=== PATIENT | female | born 1960 | race Caucasian/White ===

== ENCOUNTER 2019-08-07 18:49 | Emergency (ER) | payer MEDICAID, OTHER ==
[~2019-08-07] VITALS: Ht 167.6 cm; Wt 78.0 kg
--- NOTE | 2019-08-07 19:00 | NUR ---
bib remsa found by rpd sitting on sidewalk near unknown business, pt a&ox2, flight of ideas, follows command and ambulatory. per emt pt has bag of antipsycotic medications with her. monitors applied, siderails up x2, call light within reach
--- NOTE | 2019-08-07 19:20 | NUR ---
PROVIDED PT WITH DRINK,FACILITY REHAB DIRECTOR AT BEDSIDE
[2019-08-07 19:40] LABS: BASOPHILS # (AUTO) 0.01 x10^3/uL (0-0.1); BASOPHILS % (AUTO) 0 % (0-1); EOSINOPHILS # (AUTO) 0.03 x10^3/uL (0-0.4); EOSINOPHILS % (AUTO) 0 % (1-7); LYMPHOCYTES # (AUTO) 0.98 x10^3/uL (1-3.4); LYMPHOCYTES % (AUTO) 9 % (22-44); MD NO; MEAN CORPUSCULAR HEMOGLOBIN 34.5 pg (27.0-34.8); MEAN CORPUSCULAR HGB CONC 32.6 g/dL (32.4-35.8); MEAN CORPUSCULAR VOLUME 105.9 fL (80-100); MEAN PLATELET VOLUME 8.8 fL (7.4-10.4); MONOCYTES # (AUTO) 0.69 x10^3/uL (0.2-0.8); MONOCYTES % (AUTO) 7 % (2-9); NEUTROPHILS # (AUTO) 8.92 x10^3/uL (1.8-6.8); NEUTROPHILS % (AUTO) 84 % (42-75); PLATELET COUNT 259 x10^3/uL (130-400); RED BLOOD COUNT 4.14 x10^6/uL (3.82-5.3); RED CELL DISTRIBUTION WIDTH 14.7 % (9.6-15.2)
[2019-08-07] MEDS ORDERED: LITH300C PO (19:40)
[2019-08-07] MEDS ORDERED: RISP0.5T3 PO (19:40)
[2019-08-07] MEDS ORDERED: LORA1TAB PO (19:42)
[2019-08-07] MEDS ORDERED: TRAZ-137 PO (19:42)
[2019-08-07] MEDS ORDERED: BUPR150T73 PO (19:44)
[2019-08-07] MEDS ORDERED: GABA600T7 PO (19:44)
[2019-08-07 19:52] LABS: ALANINE AMINOTRANSFERASE 24 U/L (12-78); ALBUMIN 4.2 g/dL (3.4-5.0); ANION GAP 8 mmol/L (5-15); CALCIUM 9.9 mg/dL (8.5-10.1); CHLORIDE 110 mmol/L (98-107); CREATININE 0.85 mg/dL (0.55-1.02); SALICYLATE LEVEL 3.1 mg/dL (2.8-20.0)
[2019-08-07 19:54] LABS: ALKALINE PHOSPHATASE 60 U/L (45-117); BILIRUBIN,TOTAL 0.9 mg/dL (0.2-1.0); TOTAL PROTEIN 7.3 g/dL (6.4-8.2)
--- NOTE | 2019-08-07 20:20 | NUR ---
pt resting calmly, monitors in place, call light within reach. pt stated "i can't pee now"
--- NOTE | 2019-08-07 20:48 | NUR ---
PT UP TO RR WITH STANDBY ASSIST
--- NOTE | 2019-08-07 20:55 | NUR ---
PT DUMPED URINE SAMPLE IN [facility]. PROVIDED PT WITH WATER PER HER REQUEST
[2019-08-07] MEDS ORDERED: QUETIAPINE 100MG TABLET PO SCH (21:00)
[2019-08-07] MEDS ORDERED: QUETIAPINE 100MG TABLET ONE (21:06)
--- NOTE | 2019-08-07 21:15 | NUR ---
PT MEDICATED PER DEC. YELLOW SLIP SENT TO PHARMACY FOR MEDICATION
[2019-08-07] MEDS: HYDROXYZINE PAMOATE 50MG CAP PO PRN (21:27)
--- NOTE | 2019-08-07 21:34 | NUR ---
PROVIDED PT WITH SANDWICH AND DRINK, PT DENIES FURTHER NEEDS AT THIS TIME, MONITORS IN PLACE, SIDERAILS UP X2, CALL LIGHT WITHIN REACH
--- NOTE | 2019-08-07 22:14 | NUR ---
PT SITTING UP ON GURNEY, PROVIDED PT WITH WARM BLANKET, MONITORS IN PLACE, SIDERAILS UP X2, CALL LIGHT WITHIN REACH
--- NOTE | 2019-08-07 22:30 | NUR ---
PT ATTEMPTING TO GET UP OOB, ASSISTED PT BACK ON GURNEY, PT RESTING CALMLY, AGGREED NOT TO GET UP BY HERSELF TO CALL FOR ASSISTANCE WHEN NEED TO GET UP. ERP UPDATED REGARDING PT STATUS. ERP AT BEDSIDE FOR RECHECK
[2019-08-07] MEDS ORDERED: HALOPERIDOL 5 MG/ML IM STA (22:38)
[2019-08-07] MEDS ORDERED: HALOPERIDOL 5 MG/ML ONE (22:40)
--- NOTE | 2019-08-07 22:52 | NUR ---
PT UP WANDERING IN ROOM,. PA AT BEDSIDE, PT MEDICATED PER MAR. SECURITY CALLED FOR ASSISTANCE GETTING PT BACK ON GURNEY, RESTRAINTS X2 APPLIED. ALL PT'S PERSONAL BELONGINGS REMOVED FROM ROOM AND LOCKED UP IN SECURITY LOCKER.
--- NOTE | 2019-08-07 23:21 | NUR ---
PT RESTING CALMLY WITH EYES CLOSED, SECURITY CALLED FOR RESTRAINT REMOVAL
--- NOTE | 2019-08-07 23:48 | NUR ---
PT RESTING ON GURNEY, PORTABLE BED ALARM IN PLACE FOR PT SAFETY, BED IN LOW POSITION, SIDERAILS UP X2, CALL LIGHT WITHIN REACH, INSTRUCTED PT TO CALL FOR ASSISTANCE TO GET OOB, PT VERBALIZED UNDERSTANDING AND AGREEMENT. WILL CONTINUE TO MONITOR
--- NOTE | 2019-08-08 | NUR ---
PA UPDATED PT RESTLESS AND REQUESTING A SHOT, PA TO SEE PT
[2019-08-08] MEDS ORDERED: HALOPERIDOL 5 MG/ML ONE (00:10)
[2019-08-08] MEDS ORDERED: HALOPERIDOL 5 MG/ML IM ONE (00:30)
--- NOTE | 2019-08-08 01:04 | NUR ---
PT UP TO RR WITH STANDBY ASSIST, URINE SAMPLE SENT
[2019-08-08 01:23] LABS: AMPHETAMINE SCREEN, URINE Negative (Negative); BARBITURATE SCREEN, URINE Negative (Negative); BENZODIAZEPINE SCREEN, URINE Positive (Negative); CANNABINOID SCREEN, URINE Negative (Negative); COCAINE SCREEN, URINE Negative (Negative); METHADONE SCREEN, URINE Negative (Negative); OPIATE SCREEN, URINE Positive (Negative)
--- NOTE | 2019-08-08 01:29 | NUR ---
PT RESTING WITH EYES CLOSES, RESPIRTATIONS EVEN AND UNLABORED, SIDERAILS UP X2, SITTER AT DOORWAY FOR CONTINOUS MONITORING
--- NOTE | 2019-08-08 02:36 | NUR ---
PT UP TO RR WITH STANDBY ASSIST, SITTER REMAINS AT PT'S SIDE
--- NOTE | 2019-08-08 03:30 | NUR ---
PT RESTING WITH EYES CLOSED, NAD, EQUAL CHEST RISE/FALL OBSERVED, SITTER AT DOORWAY FOR CONTINOUS MONITORING
--- NOTE | 2019-08-08 03:30 | NUR ---
Yasmeen gonzales in ED - 08/08/19 at 0431 by JORGE PT RESTING WITH EYES CLOSED, NAD, EQUAL CHEST RISE/FALL OBSERVED, SITTER AT DOORWAY FOR CONTINOUS MONITORING
--- NOTE | 2019-08-08 04:31 | NUR ---
PT RESTING WITH EYES CLOSED, EQUAL CHEST RISE/FALL OBSERVED, SITTER AT DOORWAY FOR CONTINOUS MONITORING
[2019-08-08] MEDS: HYDROXYZINE PAMOATE 50MG CAP PO PRN (05:02)
--- NOTE | 2019-08-08 05:04 | NUR ---
PT STATED SHE IS FEELING ANXIOUS, PT MEDICATED PER MAR
--- NOTE | 2019-08-08 05:32 | NUR ---
PT SITTING UP ON GURNEY, PROVIDED PT WITH WATER PER HER REQUEST, DENIES FURTHER NEEDS, SITTER AT DOORWAY FOR CONTINOUS MONITORING
--- NOTE | 2019-08-08 05:48 | NUR ---
REPORT GIVEN TO IZZY SALES
--- NOTE | 2019-08-08 05:49 | NUR ---
REPORT FROM IZZY LOZANO PT IN ROOM WITH SI SAFTEY PRECAUTIONS IN PLACE. SITTER AT BEDSIDE TO MONITOR PT. NO REQUESTS FROM PT AT THIS TIME.
--- NOTE | 2019-08-08 06:56 | NUR ---
REPORT RECEIVED FROM HIREN MAGANA.
--- NOTE | 2019-08-08 06:56 | NUR ---
MEAL TRAY ORDERED.
--- NOTE | 2019-08-08 07:03 | NUR ---
WATER PROVIDED AT THIS TIME.
--- NOTE | 2019-08-08 07:48 | NUR ---
TASK RN: PT RESTING ON USMAN. ALEN. SITTER REMAINS AT BEDSIDE. ROOM REMAINS SECURE.
--- NOTE | 2019-08-08 08:01 | NUR ---
MEAL TRAY PROVIDED AT THIS TIME.
--- NOTE | 2019-08-08 09:03 | NUR ---
REPORT RECIEVED FROM ANEL. PT APPEARS CALM, RESTING ON GURNEY. NO NEEDS AT THIS TIME
--- NOTE | 2019-08-08 09:04 | NUR ---
REPORT GIVEN TO CHRISTIAN MAGANA.
--- NOTE | 2019-08-08 10:00 | NUR ---
PT AMUBLATED TO BATHROOM. BREAKFAST TRAY IN ROOM
--- NOTE | 2019-08-08 11:00 | NUR ---
PT RESTING. NO NEEDS AT THIS TIME
--- NOTE | 2019-08-08 12:04 | NUR ---
SERVICE DIRECTOR AT BEDSIDE. PT REQUESTING CLOTHS TO CLEAN UP
[2019-08-08] MEDS ORDERED: BUPROPION SR 150 MG TABLET PO SCH (12:30)
[2019-08-08] MEDS ORDERED: RISPERIDONE 0.5 MG TABLET PO SCH (12:30)
--- NOTE | 2019-08-08 12:54 | NUR ---
MEDICATED PER EMAR. PT EATING DIET TRAY.
--- NOTE | 2019-08-08 16:16 | NUR ---
patient resting in bed, no noted needs at this time. sitter with patient. will continue to monitor.
--- NOTE | 2019-08-08 17:38 | NUR ---
PATIENT IS RESTING IN ROOM/EVEN UNLABORED RESPIRATIONS, SITTER AT BEDSIDE. WILL CONTINUE TO MONITOR.
--- NOTE | 2019-08-08 18:23 | NUR ---
PATIENT RESTING IN BED, SITTER AT BEDSIDE.
--- NOTE | 2019-08-08 18:37 | NUR ---
PACKET FAXED TO [facility], [facility]
--- NOTE | 2019-08-08 18:43 | NUR ---
TASK RN: PT RESTING ON brotips WATCHING TV. NO ACUTE DISTRESS NOTED. ALL SAFETY MEASURES OBTAINED. SITTER AT DOORWAY, PT WITHIN FULL VIEW.
--- NOTE | 2019-08-08 19:01 | NUR ---
CONFIRMATION FAX RECEIVED FROM ALL FACILITIES AND PLACED IN CHART.
--- NOTE | 2019-08-08 19:11 | NUR ---
REPORT TO IZZY JOSEPH.
--- NOTE | 2019-08-08 19:11 | NUR ---
PT DECLINED BY ROWAN AT [facility] DUE TO INSURANCE.
--- NOTE | 2019-08-08 19:45 | NUR ---
Report received from IZZY Matthews Assumed care of this patient. patient laying in bed, watching television with even and unlabored respiration. No signs of acute distress noted. sitter on direct line of sight at the doorway.
--- NOTE | 2019-08-08 20:15 | NUR ---
report given to oncoming nurse, vital signs completed, updated on plan of care. no noted needs at this time.
--- NOTE | 2019-08-08 20:51 | NUR ---
Yellow slip sent to pharmacy requesting medicaion per eMAR.
[2019-08-08] MEDS ORDERED: LITHIUM CARBONATE 300 MG CAPSULE PO SCH (21:00)
--- NOTE | 2019-08-08 21:12 | NUR ---
Medication from pharmacy received. Given to patient and was compliant. Patient resting calmly on bed, watching television. Will continue to monitor.
--- NOTE | 2019-08-08 21:15 | NUR ---
KALINA FROM [facility] CALLED AND STATES DR BUSCH WILL BE ACCEPTING AND WOULD LIKE THE PT TO ARRIVE AT 2330. JONY WITH [facility] WAS CALLED AND TRANSPORT SET UP. INFORMATION FAXED TO [facility].
--- NOTE | 2019-08-08 21:30 | NUR ---
TRANSFER SET UP THROUGH [facility] ETA [id number]
--- NOTE | 2019-08-08 21:59 | NUR ---
Patient on the bed, calmly watching television at this time with even and unlabored respirations. Sitter at the door way , in direct line of site.
--- NOTE | 2019-08-08 23:19 | NUR ---
Gave report to [facility]. Patient is being transffered to [facility]. BRIA in patients room at this time. Patient calm and cooperative.
== END 2019-08-08 23:33 ==
LOC: MERGE 08-08 08:53 → EDBD 08-08 08:53 → ED 08-08 08:53
DX: F22 Delusional disorders (principal); F06.0 Psychotic disorder with hallucinations due to known physiological condition; Z72.9 Problem related to lifestyle, unspecified; F17.210 Nicotine dependence, cigarettes, uncomplicated
CPT/HCPCS: 36415; 80053; 80178; 80307; 85025; 96372; 99285; J1630